=== PATIENT | male | born 1965 | race African-American/Black ===

== ENCOUNTER 2019-01-01 10:28 | Inpatient (IN) | payer OTHER ==
[~2019-01-01] VITALS: Ht 175.3 cm; Wt 120.7 kg
[~2019-01-01 10:28] MED LIST: ATEN100T PO; CYCL5TAB PO; GEMF600T4 PO; IBUP-2030 PO; LOSA1TAB37 PO; METF-414 PO; OMEP40CA34 PO
[2019-01-01] MEDS ORDERED: SODIUM CHLORIDE 0.9% 1,000 ML IV ONE (10:53)
[2019-01-01] MEDS ORDERED: ONDANSETRON HCL 4MG/2ML INJ IV ONE (11:00)
[2019-01-01 11:23] LABS: BASOPHILS % 0.9 % (0.0-2.0); EOSINOPHILS % 1.1 % (0.0-5.0); HEMATOCRIT. 48.9 % (42.0-52.0); HEMOGLOBIN. 16.1 g/dL (14.0-18.0); LYMPHOCYTES % 25.8 % (20.0-50.0); MEAN CORPUSCULAR VOLUME 84.8 fL (80.0-94.0); MEAN PLATELET VOLUME 9.3 fl (7.4-10.4); NEUTROPHILS % 63.2 % (40.0-76.0); PLATELET 326 x1000/uL (130-400); RED BLOOD CELL COUNT 5.76 mill/uL (4.7-6.1); RED CELL DISTRIBUTION WIDTH 13.6 % (11.6-14.6)
[2019-01-01 11:26] LABS: CHLORIDE 104 mEq/L (98-107)
[2019-01-01] MEDS ORDERED: ALBUTEROL (0.083%) 2.5MG/3ML NEB HHN STA (11:40)
[2019-01-01] MEDS ORDERED: IPRATROPIUM BROMIDE (0.02%) 0.5MG/2.5ML NEB HHN STA (11:40)
[2019-01-01 12:02] LABS: BG BASE EXCESS 2.4 mmol/L (-2.0-2.0); BG CARBOXYHEMOGLOBIN 3.6 % (0.5-1.5); BG DEOXYHEMOGLOBIN 4.7 % (0.0-5.0); BG FRACTION INSPIRED OXYGEN 32; BG HCO3 ACT 27.7 mmol/L (22.0-26.0); BG METHEMOGLOBIN 0.3 % (0.0-1.5); BG OXYGEN SATURATION 95.1 % (92.0-98.5); BG OXYHEMOGLOBIN 91.4 % (94.0-97.0); BG PCO2 45.1 mmHg (35.0-45.0); BG PH 7.406 (7.350-7.450); BG PO2 74.2 mmHg (75.0-100.0); BG SAMPLE SITE RIGHT RADIAL; BG TOTAL HEMOGLOBIN 16.3 g/dL (12.0-18.0); BG VENT MODE NASAL CANNULA
[2019-01-01] MEDS ORDERED: HYDRALAZINE 20MG/ML VIAL IV NR (13:45)
[2019-01-01] MEDS ORDERED: MAGNESIUM CITRATE 300ML SOLUTION PO ONE (17:15)
[2019-01-01 21:39] VITALS: BP 141/95
[2019-01-01 21:40] VITALS: BP 140/95
[2019-01-01] MEDS ORDERED: INFLUENZA VIRUS VACCINE(AFLURIA) 0.5ML SYR IM ONE (22:15)
[2019-01-02] VITALS: BP 127/72
[2019-01-02 04:00] VITALS: BP 152/103
[2019-01-02 08:00] VITALS: BP 151/94
[2019-01-02] MEDS ORDERED: DOCUSATE SODIUM 250MG CAPSULE PO SCH (09:45)
[2019-01-02] MEDS ORDERED: LACTULOSE 20G/30ML UDC PO SCH (09:45)
[2019-01-02 09:52] LABS: CHLORIDE 104 mEq/L (98-107)
[2019-01-02 10:01] LABS: LDL CHOLESTEROL 125 mg/dL (5-100)
[2019-01-02 10:03] LABS: HDL CHOLESTEROL 22 mg/dL (40-59)
[2019-01-02 12:00] VITALS: BP 149/88
[2019-01-02] MEDS ORDERED: AM500 MT (12:24)
[2019-01-02] MEDS ORDERED: CLOP75TA16 MT (12:29)
[2019-01-02] MEDS ORDERED: PHEN300C6 MT (12:29)
[2019-01-02] MEDS ORDERED: ASPI-1158 MT (12:29)
[2019-01-02] MEDS ORDERED: LIP40 MT (12:29)
[2019-01-02] MEDS ORDERED: LOSA50TA3 MT (12:29)
[2019-01-02] MEDS ORDERED: OMEP40CA34 MT (12:29)
[2019-01-02] MEDS ORDERED: IBUP-2029 MT (12:29)
[2019-01-02] MEDS ORDERED: ATEN100T MT (12:29)
[2019-01-02] MEDS ORDERED: ASPIRIN 81MG TABLET PO SCH (13:45)
[2019-01-02] MEDS ORDERED: CLOPIDOGREL 75MG TABLET PO SCH (13:45)
[2019-01-02] MEDS ORDERED: PHENYTOIN SODIUM 1,000 MG in SODIUM CHLORIDE 0.9% 100 ML IV NR (15:00)
[2019-01-02 16:00] VITALS: BP 157/89
[2019-01-02] MEDS ORDERED: CLONIDINE 0.1MG TABLET PO NR (16:30)
[2019-01-02 17:35] VITALS: BP 143/89
[2019-01-02] MEDS ORDERED: ATORVASTATIN CALCIUM 40MG TABLET PO SCH (21:00)
== END 2019-01-02 18:45 | disposition home or self-care (01) | DRG 254 ==
LOC: ER 10:28 → 5WST 13:46 → EDBEDREQSVC 13:53 → EDBEDREQ 13:53 → EDBEDREQTM 13:53 → ENRESERV 19:51
PROVIDERS: ADMIT Internal Medicine; ATTEND Internal Medicine
DX: K59.00 Constipation, unspecified (principal); E66.01 Morbid (severe) obesity due to excess calories; I11.9 Hypertensive heart disease without heart failure; G47.33 Obstructive sleep apnea (adult) (pediatric); R09.02 Hypoxemia; E11.9 Type 2 diabetes mellitus without complications; E78.5 Hyperlipidemia, unspecified; G40.909 Epilepsy, unspecified, not intractable, without status epilepticus; Z86.73 Personal history of transient ischemic attack (TIA), and cerebral infarction without residual deficits; Z68.39 Body mass index [BMI] 39.0-39.9, adult; R47.81 Slurred speech; E87.6 Hypokalemia; Z79.899 Other long term (current) drug therapy; Z79.82 Long term (current) use of aspirin
CPT/HCPCS: 36415; 36600; 71045; 74021; 80048; 80061; 80185; 82375; 82805; 82962; 83036; 83880; 84484; 90686; 93005; 94640; 96361; 96374; 96375; 97162; 99291; J0360; J1165; J2405; J7030; J7050; J7611

== ENCOUNTER 2023-02-25 12:54 | Emergency (ER) | payer OTHER ==
[~2023-02-25] VITALS: Ht 175.3 cm; Wt 122.0 kg
[~2023-02-25 12:54] MED LIST changes: +CLOP-31 PO; -CYCL5TAB PO; -GEMF600T4 PO; -IBUP-2030 PO; +LIP40 PO; +OMEP40CA20 PO; -OMEP40CA34 PO
[2023-02-25] MEDS ORDERED: ONDANSETRON HCL 4MG/2ML INJ IV STA (13:10)
[2023-02-25] MEDS ORDERED: MORPHINE SULFATE 4 MG/ML CPJ (NOT FOR IM USE) IV ONE (13:15)
[2023-02-25] MEDS ORDERED: SODIUM CHLORIDE 0.9% 1,000 ML IV ONE (13:15)
[2023-02-25 14:26] LABS: BASOPHILS % 0.7 % (0.0-2.0); EOSINOPHILS % 0.4 % (0.0-5.0); HEMATOCRIT. 53.9 % (42.0-52.0); HEMOGLOBIN. 18.3 g/dL (14.0-18.0); MEAN CORPUSCULAR HEMOGLOBIN 28.9 pg (28.0-32.0); MEAN CORPUSCULAR VOLUME 85.1 fL (80.0-94.0); MEAN PLATELET VOLUME 10.2 fl (7.4-10.4); MONOCYTES % 10.6 % (2.0-8.0); NEUTROPHILS % 67.3 % (40.0-76.0); PLATELET 231 x1000/uL (130-400); RED BLOOD CELL COUNT 6.33 mill/uL (4.7-6.1); RED CELL DISTRIBUTION WIDTH 13.9 % (11.6-14.6)
[2023-02-25 14:32] LABS: CHLORIDE 102 mEq/L (98-107)
[2023-02-25 14:35] LABS: INR 1.1; PROTHROMBIN TIME 11.7 sec (9.6-11.0)
[2023-02-25 14:41] LABS: ETHANOL BLOOD < 10 mg/dL
[2023-02-25] MEDS ORDERED: OMEP20TA23 PO (16:20)
[2023-02-25] MEDS ORDERED: MAG-55 PO (16:20)
[2023-02-25 16:35] VITALS: BP 160/98
== END 2023-02-25 16:41 | disposition home or self-care (01) ==
LOC: ER 13:03
DX: R10.13 Epigastric pain (principal); D58.2 Other hemoglobinopathies; I48.91 Unspecified atrial fibrillation; J45.909 Unspecified asthma, uncomplicated; E11.9 Type 2 diabetes mellitus without complications; E78.00 Pure hypercholesterolemia, unspecified; I10 Essential (primary) hypertension; F12.90 Cannabis use, unspecified, uncomplicated; Z86.73 Personal history of transient ischemic attack (TIA), and cerebral infarction without residual deficits; Z79.84 Long term (current) use of oral hypoglycemic drugs
CPT/HCPCS: 36415; 80053; 80320; 83605; 83690; 85025; 85610; 93005; 96361; 96374; 96375; 99284; J2270; J2405; J7030; Z7610; G0480

== ENCOUNTER 2023-12-02 14:30 | Emergency (ER) | payer MEDICAID, OTHER ==
[~2023-12-02] VITALS: Ht 177.8 cm; Wt 91.0 kg
[~2023-12-02 14:30] MED LIST changes: +MAG-55 PO; +OMEP20TA23 PO
[2023-12-02 14:42] VITALS: BP 185/95; PULSE 98; RESP 16; TEMP 98; O2SAT 98
[2023-12-02] MEDS ORDERED: IBUPROFEN 600MG TABLET PO ONE (14:45)
== END 2023-12-02 16:57 | disposition left against medical advice (07) ==
LOC: ER 14:30
DX: S00.83XA Contusion of other part of head, initial encounter (principal); S06.0X0A Concussion without loss of consciousness, initial encounter; F12.90 Cannabis use, unspecified, uncomplicated; J45.909 Unspecified asthma, uncomplicated; E11.9 Type 2 diabetes mellitus without complications; E78.00 Pure hypercholesterolemia, unspecified; I10 Essential (primary) hypertension; Z86.73 Personal history of transient ischemic attack (TIA), and cerebral infarction without residual deficits; Y08.89XA Assault by other specified means, initial encounter; Y93.89 Activity, other specified; Y92.89 Other specified places as the place of occurrence of the external cause; Y99.8 Other external cause status
CPT/HCPCS: 99283

== ENCOUNTER 2024-05-14 23:20 | Emergency (ER) | payer MEDICAID ==
[~2024-05-14] VITALS: Ht 182.9 cm; Wt 118.0 kg
[~2024-05-14 23:20] MED LIST changes: +OMEP40CA20 MT
[2024-05-14 23:24] VITALS: BP 152/88; PULSE 88; RESP 18; O2SAT 98
[2024-05-14] MEDS ORDERED: TETANUS, DIPHTHERIA, PERTUSSIS VAC/PF 0.5ML (>10YR OLD) IM ONE (23:30)
[2024-05-15] MEDS: ACETAMINOPHEN 325MG TABLET PO ONE (02:10)
[2024-05-15 02:20] VITALS: TEMP 98.4
[2024-05-15] MEDS: ACETAMINOPHEN 325MG TABLET PO NR (02:20)
[2024-05-15] MEDS: TETANUS, DIPHTHERIA, PERTUSSIS VAC/PF 0.5ML (>10YR OLD) IM ONE (02:21)
[2024-05-15] MEDS ORDERED: ACET-2708 MT (02:57)
[2024-05-15] MEDS ORDERED: BO1 TP (02:57)
[2024-05-15] MEDS: BACITRACIN ZINC OINT UDPKT TOP NR (03:17)
[2024-05-15] MEDS: BACITRACIN 14GM TUBE TOP ONE (03:18)
== END 2024-05-15 03:39 | disposition home or self-care (01) ==
LOC: ER 23:20
DX: S01.01XA Laceration without foreign body of scalp, initial encounter (principal); I10 Essential (primary) hypertension; F12.10 Cannabis abuse, uncomplicated; G31.89 Other specified degenerative diseases of nervous system; Z86.73 Personal history of transient ischemic attack (TIA), and cerebral infarction without residual deficits; Z79.899 Other long term (current) drug therapy; Y08.89XA Assault by other specified means, initial encounter; Y93.89 Activity, other specified; Y92.89 Other specified places as the place of occurrence of the external cause; Y99.8 Other external cause status
CPT/HCPCS: 99285; 70450; 90715; 90471; Z7610